=== PATIENT | female | born 1990 | race Two or more races ===

== ENCOUNTER 2018-10-31 01:52 | Inpatient (IN) | payer OTHER ==
[~2018-10-31] VITALS: Ht 160 cm; Wt 69.4 kg
[2018-10-31] MEDS ORDERED: PRENATAL TABLE1 EAC1 PO (02:30)
[2018-10-31] MEDS ORDERED: IRON 100 PLUS1 EACH PO (02:31)
== END 2018-11-02 12:48 | disposition home or self-care (01) | DRG 798 ==
LOC: OB/GYN 01:52 → LDR 01:52 → OB/GYN 04:44
PROVIDERS: ADMIT Obstetrics & Gynecology
PROC: 0KQM0ZZ Repair Perineum Muscle, Open Approach (ICD-10-PCS; 2018-10-31)
PROC: 4A1HXCZ Monitoring of Products of Conception, Cardiac Rate, External Approach (ICD-10-PCS; 2018-10-31)
PROC: 10E0XZZ Delivery of Products of Conception, External Approach (ICD-10-PCS; principal; 2018-10-31 12:00)
PROC: 0UL70ZZ Occlusion of Bilateral Fallopian Tubes, Open Approach (ICD-10-PCS; 2018-11-01)
DX: O70.1 Second degree perineal laceration during delivery (principal); Z37.0 Single live birth; Z3A.39 39 weeks gestation of pregnancy; Z30.2 Encounter for sterilization; Z22.330 Carrier of Group B streptococcus